=== PATIENT | female | born 1990 | race Two or more races ===

== ENCOUNTER → 2023-08-25 | Outpatient (REF) | payer BC | LOC: M SFHCWAGY 17:23 | PROVIDERS: ATTEND Obstetrics & Gynecology | DX: Z36.85 Encounter for antenatal screening for Streptococcus B (principal); Z3A.35 35 weeks gestation of pregnancy ==

== ENCOUNTER 2023-09-13 14:03 | Inpatient (IN) | payer BC ==
[~2023-09-13] VITALS: Ht 167.6 cm; Wt 116.0 kg
[2023-09-13] VITALS (24 sets, daily range): BP systolic 82–144; BP diastolic 47–88
[2023-09-13] MEDS ORDERED: PRENTAB9 PO (14:36)
[2023-09-13] MEDS ORDERED: ACET325C5 PO (14:37)
[2023-09-13] MEDS ORDERED: HOME MED LIST COMPLETE! XX SCH (15:00)
[2023-09-13 15:43] LABS: HEMATOCRIT 34.3 % (36.0-47.0); HEMOGLOBIN 11.5 g/dl (12.0-15.5); MEAN CORPUSCULAR HGB CONC 33.5 g/dl (32.0-36.5); MEAN CORPUSCULAR VOLUME 89.6 fl (80.0-96.0); PLATELET COUNT, AUTOMATED 278 10^3/uL (150-450); RED BLOOD COUNT 3.83 10^6/uL (4.00-5.40); WHITE BLOOD COUNT 10.5 10^3/uL (4.0-10.0)
[2023-09-13] MEDS ORDERED: LACTATED RINGER'S 1000 ML IV STA (16:18)
[2023-09-13] MEDS ORDERED: TRANEXAMIC ACID INJection 1,000 MG in NS 100 ML IV PRN (16:20)
[2023-09-13] MEDS ORDERED: LIDOCAINE 1% MDV 20ML VIAL INFIL PRN (16:20)
[2023-09-13] MEDS ORDERED: CARBOPROST TROMETHAMINE 250 MCG/ML AMP IM PRN (16:20)
[2023-09-13] MEDS ORDERED: ACETAMINOPHEN 500 MG TAB PO ONE (16:20)
[2023-09-13] MEDS ORDERED: METHYLERGONOVINE MALEATE 0.2MG/ML 1ML VIAL IM PRN (16:20)
[2023-09-13] MEDS ORDERED: OXYTOCIN DRIP 30 UNITS in IV 1 EA IV PRN (16:20)
[2023-09-13] MEDS ORDERED: OXYTOCIN DRIP 30 UNITS in IV 1 EA IV SCH (16:20)
[2023-09-13] MEDS: LR 1,000 ML IV SCH ×2 (17:21→23:51)
[2023-09-13] MEDS ORDERED: LR 500 ML IV PRN (18:25)
[2023-09-13] MEDS ORDERED: NALOXONE INJ 0.4MG/1ML VIAL IV PRN (18:25)
[2023-09-13] MEDS ORDERED: ONDANSETRON 4MG 2ML VIAL IV PRN (18:25)
[2023-09-13] MEDS ORDERED: EPIDURAL/PCA KEYS XX PRN (18:25)
[2023-09-13] MEDS: FENTANYL/ROPIVACAINE/NACL BAG 100 ML EPIDURAL SCH (18:58)
[2023-09-13] MEDS: diphenhydrAMINE 50MG/ML VIAL IV PRN (22:20)
[2023-09-13] MEDS: ePHEDrine SULFATE 25 MG/5 ML(5MG/ML) SYRINGE IVP PRN ×3 (23:45→23:51)
[2023-09-14] VITALS (25 sets, daily range): BP systolic 91–142; BP diastolic 48–75; O2SAT 97
[2023-09-14] MEDS: FENTANYL/ROPIVACAINE/NACL BAG 100 ML EPIDURAL SCH ×2 (05:03→09:30)
[2023-09-14] MEDS: diphenhydrAMINE 50MG/ML VIAL IV PRN (05:10)
[2023-09-14] MEDS: LR 1,000 ML IV SCH (10:07)
[2023-09-14] MEDS ORDERED: ACETAMINOPHEN TAB 650MG DOSE (2X325MG) PO PRN (11:30)
[2023-09-14] MEDS ORDERED: ANUSOL HC CREAM 30GM TOP PRN (11:30)
[2023-09-14] MEDS ORDERED: OXYTOCIN DRIP 30 UNITS in IV 1 EA IV SCH ×4 (11:30)
[2023-09-14] MEDS ORDERED: RHOGAM 300MCG (1500IU) INJ IM SCH (11:30)
[2023-09-14] MEDS ORDERED: ONDANSETRON 4MG 2ML VIAL IV PRN (11:30)
[2023-09-14] MEDS ORDERED: METHYLERGONOVINE MALEATE 0.2 MG TAB PO PRN (11:30)
[2023-09-14] MEDS: ACETAMINOPHEN 500 MG TAB PO PRN ×2 (11:52→17:29)
[2023-09-14 12:51] LABS: HIV 1&2 SCREEN NEGATIVE (NEGATIVE)
[2023-09-14] MEDS: IBUPROFEN 600MG TAB PO PRN ×2 (14:01→21:01)
[2023-09-14] MEDS: DOCUSATE SODIUM 100MG CAPSULE PO PRN ×2 (14:44→21:01)
[2023-09-14] MEDS: DIBUCAINE 1% OINTMENT 30GM TOP PRN (15:53)
[2023-09-15] MEDS: IBUPROFEN 800 MG TAB PO PRN ×3 (04:25→21:35)
[2023-09-15 06:00] VITALS: BP 128/79; O2SAT 97
[2023-09-15] MEDS: PRENATAL VITAMINS CHEWABLE TABLET PO SCH (07:53)
[2023-09-15] MEDS: ACETAMINOPHEN 500 MG TAB PO PRN ×2 (07:54→17:16)
[2023-09-15] MEDS ORDERED: PRENATAL VITAMINS CHEWABLE TABLET PO SCH (09:00)
[2023-09-15 18:00] VITALS: BP 123/73; O2SAT 97
[2023-09-15] MEDS: DOCUSATE SODIUM 100MG CAPSULE PO PRN (19:46)
[2023-09-16] MEDS: ACETAMINOPHEN 500 MG TAB PO PRN ×2 (01:48→09:59)
[2023-09-16] MEDS: DIBUCAINE 1% OINTMENT 30GM TOP PRN (03:02)
[2023-09-16] MEDS: IBUPROFEN 800 MG TAB PO PRN (05:20)
[2023-09-16 06:00] VITALS: BP 126/67; O2SAT 97
[2023-09-16] MEDS: PRENATAL VITAMINS CHEWABLE TABLET PO SCH (08:37)
[2023-09-16] MEDS ORDERED: MEASLES,MUMPS,RUBELLA VACCINE INJ (MMR-II) SC.IMMUN ONE (09:00)
[2023-09-16] MEDS: DOCUSATE SODIUM 100MG CAPSULE PO PRN (09:59)
[2023-09-16] MEDS: IBUPROFEN 600MG TAB PO PRN (12:31)
== END 2023-09-16 12:46 | disposition home or self-care (01) | DRG 560 ==
LOC: M LDI 14:03 → M OBS 09-14 13:10
PROVIDERS: ADMIT Obstetrics & Gynecology; ATTEND Obstetrics & Gynecology
PROC: 3E033VJ Introduction of Other Hormone into Peripheral Vein, Percutaneous Approach (ICD-10-PCS; 2023-09-13)
PROC: 10E0XZZ Delivery of Products of Conception, External Approach (ICD-10-PCS; principal; 2023-09-14)
PROC: 0HQ9XZZ Repair Perineum Skin, External Approach (ICD-10-PCS; 2023-09-14)
DX: O41.03X0 Oligohydramnios, third trimester, not applicable or unspecified (principal); O24.429 Gestational diabetes mellitus in childbirth, unspecified control; Z37.0 Single live birth; Z3A.39 39 weeks gestation of pregnancy; O34.211 Maternal care for low transverse scar from previous cesarean delivery; O70.0 First degree perineal laceration during delivery